=== PATIENT | female | born 1985 | race Caucasian/White ===

== ENCOUNTER 2021-11-12 15:30 | Outpatient (RCR) | payer BC, SELFPAY ==
--- NOTE | 2021-10-29 12:11 | OT.OPGNE ---
OT Outpatient General/Neuro Eval OT Outpatient General/Neuro Eval Start: 10/29/21 11:36 Freq: Status: Active Protocol: Document 10/29/21 11:36 JEFFERSON (Rec: 10/29/21 12:03 JEFFERSON [id number]) E-signed By Violetta Mauro, OTR/L, CLT OT Outpatient Evaluation Details Type Type Eval Complexity Low Insurance Information Insurance Information Insurance Information Blue Cross/Blue Shield Outpatient History/Precautions Medical/Functional History Medical History Reviewed Yes Current Condition Treatment Diagnosis B Forearm pain R > L side with intermitte ulnar pattern numbness of R RF/SF Date of Onset 09/29/21 Social History 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 Noticing she is having tenderness at cubital tunnel/medial elbow, RF/SF numbness bouts intermittently in R hand, also some at base of R C7 and T1. History of extra neck shoulder tension issues related to compensatory movements she makes in R UE ( has limited [id number] to 35 of 90 degrees R s/p trampoline injury with surgery at age 9 y/o). Hoping to get back into some form of yoga for her fitness at some point. Currently walks with a coworker over lunch 2-3x/week. Gets occasional massages and feels good at forearms, helpful. Has a supportive who works long hours as a pharmacist. Pain Assessment Pain B forearms Pain Description Tightness,Dull, Achy,With Movement,Heaviness Objective Measures Shoulder Shoulder ROM Decreased scapular rotation by 30 of 60 degrees, tight at rhomboids and latissimus dorsi . R SH ER w SH ABD to 90-- gets to 85 of 90 and HABD to 105 of 110; both pulling at posterior capsule/ infraspinatus. Elbow Elbow ROM WNL Elbow Strength Blanced MMT for B biceps and triceps. Wrist Wrist Tapping at [place] is provocative R, not on L. Has good balanced strength at RF/ SF adductors C8/T1. Increased nerve symptoms during ulnar nerve glide exercises at R medial elbow. Wrist ROM WNL all planes except supination R to 35 of 90 degrees. Wrist Strength Balanced MMT for WE, WF, RD and UD. Hand Hand Pull Through Hooker is 40# R and 39# L pos 1. Pos 2 is 46# R and 45 #L, no pain. Hill pinch is 17# B and 3 pt is 15# R and 14# L. Tissue Texture changes noted at B forearm flexor muscle bellies and also R extensor muscle bulk. Non tender at later or medial epicondyles, but is tender at ulnar groove at medial EL Home Maintenance Assessment ADL Oral Care Ability Independent Bathing Ability Independent Eating (Feeding) Ability Independent Upper Body Dressing Ability Independent Lower Body Dressing Ability Independent Grooming Ability Independent Toileting Ability Independent Ambulation Ability Independent Home Management Meal Preparation Ability Independent Cleaning Ability Independent Shopping Ability Minimum Assistance Assistance Assistance Currently Received Gets more pain with sleeping on sides, then lands onto stomach/in prone with EL flexed under chest q noc, more hand numbness in the mornings . Carrying car seat, heavy grocery loads with elbows extended, long bottle feedings in hooked position and managing child seat ad are painful. Assessment Assessment Assessment Given Radha's s diagnosis of B forearm muscle pain with intermittent R hand numbness at RF/SF, ?difficulty with edema/fibrous tissue texture, pain, of R/wrist/elbow, periscapular tightness at R shoulder and tightness at L forearm , she would benefit from skilled OT to address these areas. Occupational Therapy Treatment Plan - OP Potential Rehabilitation Potential Excellent Goals Goals In 8 weeks, Radha will demonstrate:? 1) Decreased pn to <2/10 80% of the time with sustained bottle feeding, carrying groceries, computer data officer . 2) I HEP for stretching, gradual strengthening and self mgmt strategies. 3) improved L cream cheese maker strength to 15# and pinch to 10# with L thumb pain < 1/10. 4) ??Pt to be fit with functional bracing (for CMC, wrist,) and use adaptive strategies to protect joint integrity to support less pain with ADL. Progress set Treatment Plan Treatment Plan Evaluation,Edema Control, Manual Therapy,Splinting, Ultrasound,Therapeutic Exercise,Self-Care/Home Management,Education Expected Frequency 1-2x Week Expected Duration 6-8 Weeks Certification Certification I Certify That: Therapy Services Provided, Therapy Plan Established, Therapy Plan Reviewed
== END 2022-01-12 13:53 | disposition home or self-care (01) ==
PROVIDERS: PCP Family Medicine; Visit Provider Family Medicine
DX: M79.631 Pain in right forearm (principal); Z51.89 Encounter for other specified aftercare
CPT/HCPCS: 97035; 97110; 97140; 97165; 97535; X5282

== ENCOUNTER 2022-10-03 08:40 | Outpatient (CLI) | payer OTHER, SELFPAY | END 2022-10-03 08:41 | disposition home or self-care (01) | LOC: NFLDREF 14:25 | PROVIDERS: PCP Family Medicine; Visit Provider Family Medicine | DX: M25.562 Pain in left knee (principal); G43.909 Migraine, unspecified, not intractable, without status migrainosus | CPT/HCPCS: 36415; 80053; 80061; 85025 ==

== ENCOUNTER 2022-11-09 13:00 | Outpatient (CLI) | payer OTHER, SELFPAY | END 2022-11-09 13:01 | disposition home or self-care (01) | PROVIDERS: PCP Family Medicine; Visit Provider Family Medicine | DX: E80.6 Other disorders of bilirubin metabolism (principal); K90.0 Celiac disease; K92.1 Melena | CPT/HCPCS: 80053; 82248; 82784; 82977; 86364 ==

== ENCOUNTER 2022-12-20 10:45 | Outpatient (RCR) | payer OTHER, SELFPAY | END 2022-12-20 12:09 | disposition home or self-care (01) | PROVIDERS: PCP Family Medicine; Visit Provider Family Medicine | DX: S83.92XA Sprain of unspecified site of left knee, initial encounter (principal); Z51.89 Encounter for other specified aftercare | CPT/HCPCS: 80053; 82248; 82977; 97110; 97161 ==

== ENCOUNTER 2023-01-05 09:40 | Outpatient (CLI) | payer OTHER, SELFPAY ==
--- NOTE | 2023-01-05 11:50 | W.ANESCHARGE ---
Anesthesia Charges Start Date/Time Anesthesia Start Date: 01/05/23 Anesthesia Start Time: 10:55 Stop Date/Time Anesthesia Stop Date: 01/05/23 Anesthesia Stop Time: 11:40
--- NOTE | 2023-01-05 12:44 | W.ANESCHARGE ---
Anesthesia Charges Start Date/Time Anesthesia Start Date: 01/05/23 Anesthesia Start Time: 10:55 Stop Date/Time Anesthesia Stop Date: 01/05/23 Anesthesia Stop Time: 11:40
== END 2023-01-05 09:41 | disposition home or self-care (01) ==
LOC: OP CLINIC 09:41
PROVIDERS: PCP Family Medicine; Visit Provider Surgery
DX: K21.9 Gastro-esophageal reflux disease without esophagitis (principal); K63.5 Polyp of colon; R19.7 Diarrhea, unspecified
CPT/HCPCS: 00813; 43239; 45380; 88305; J2704

== ENCOUNTER 2023-08-18 09:25 | Outpatient (CLI) | payer OTHER, SELFPAY ==
--- OUTSIDE RECORDS SUMMARY | 2023-08-18 13:08 | XMS_ITS | Clinical Summary ---
Author Organization [facility] Address [address] [address] Care Team Providers Care Wall Taper Name Role Phone Malena Ballesteros MD Primary Care Provider [phone] Source Comments You are receiving this document as you are listed as the primary care provider,follow-up provider, or the patient has been referred to you for consultation.This is in compliance with the Medicare and[facility] EHR Incentive Program,which states Providers who transition their patient to another setting of careor provider of care or refers their patient to another provider of care shouldprovide summary care record for each transition of care or referral. [facility] Allerg[facility] No known active allergies Medications Medication Sig Dispensed Refills Start Date End Date Status cetirizine (ZYRTEC) 5 MG tablet Take 5 mg by mouth daily. Active acetaminophen (TYLENOL) 325 MG tablet Take 325-650 mg by mouth every 6 hours as needed for Pain. Active vkbvctcivr-ctzxxje-njo feine (FIORINAL) 50-325-40 MG tablet Take 1 Tablet by mouth every 4 hours as needed for Pain. Active raNITIdine HCl (ACID BATCH ANALYST OR) Take 1 Tablet by mouth daily. Active Simethicone (GAS-X OR) Take 125 mg by mouth as needed. Active Nxiqttij-Gne-Bu-FA (PRE- OR) Take 1 Tablet by mouth daily. Active Active Problems Problem Noted Date Diagnosed Date Seasonal allergic rhinitis 07/04/2013 Comments Yes Immunizations Name Administration Dates Next Due Influenza IIV4 (Quadrivalent) 0.5mL (85055) 09/2018 Tdap 06/10/2016 Family History Medical History Relation Name Comments Thyroid Disorder Mother prediabetes Mother Thyroid Disorder Maternal Aunt Heart Disease Maternal Uncle 50 Thyroid Disorder Sister Cancer Negative Family History Diabetes Negative Family History Stroke Negative Family History Relation Name Status Comments Mother Maternal Aunt Maternal Uncle Sister Social History Tobacco Use Types Packs/Day Years Used Date Smoking Tobacco: Never Smokeless Tobacco: Never Alcohol Use Standard Drinks/Week Comments Not Currently 0 (1 standard drink = 0.6 oz pur e alcohol) Comments Yes Sex and Gender Information Value Date Recorded Sex Assigned at Not on file Gender Identity Not on file Sexual Orientation Not on file Last Filed Vital Signs Vital Sign Reading Time Taken Comments Blood Pressure 102/76 11/01/2018 11:11 AM CDT Pulse 88 11/01/2018 11:11 AM CDT Temperature - - Respiratory Rate - - Oxygen Saturation - - Inhaled Oxygen Concentration - - Weight 76.9 kg (169 lb 8 oz) 11/01/2018 11:11 AM CDT Height 164.5 cm (5' 4.75) 11/01/2018 11:11 AM C DT Body Mass Index 28.42 11/01/2018 11:11 AM CDT Plan of Treatment Health Maintenance Due Date Last Done Comments Hep C Screening (Preventive Services) 1986 HepB (1) 2005 Cervical Cancer Screening 07/05/2020 07/05/2017 Adult Preventive Visit 11/01/2020 9, 07/05/2017, 06/10/2016 COVID-19 Vaccine ( - season) 2022 05/16/2020, 04/25/2020 Influenza (#1) 2023 12/24/2019, 090 09/2018, 11/19/2017, Additional history exists DTaP/Tdap/Td (3 - Tdap) 10/14/2028 10/14/2018, 06/10 Zoster/Shingles (1 of 2) 2036 HIV Screening (Preventive Services) Completed 07/05/2017 Pneumococcal Aged Out 11/28/2019 No longer eligi ble based on patient's age to complete this topic HPV Vaccine Aged Out No longer eligi ble based on patient's age to complete this topic HepA Aged Out No longer eligi ble based on patient's age to complete this topic Hib Aged Out No longer eligi ble based on patient's age to complete this topic IPV (Polio) Aged Out No longer eligi ble based on patient's age to complete this topic MCV4 Aged Out No longer eligi ble based on patient's age to complete this topic Procedures Procedure Name Priority Date/Time Associated Diagnosis Comments HIV 1/2 AG/AB 4TH GEN Routine 07/05/2017 9:00 AM CDT Well adult exam ANATOMICAL PATH LIQUID BASED Routine 07/05/2017 8:42 AM CDT from Last 3 Months or Most Recently Relevant to Health Maintenance Results * HIV 1/2 Ag/Ab 4th Generation (07/05/2017 9:00 AM CDT) HIV-1 p24 Ag and HIV-1/HIV-2 Ab Nonreactive Nonreactive PN SOFT 07/05/2017 9:00 AM CDT 07/05/2017 12:13 PM CDT Narrative SAV SOFT - 07/05/2017 1:06 [place] [address] CLIA number [id number] Malena Ballesteros MD LAB_[address] [address] [place] [address] * Pap Smear (07/05/2017 8:42 AM CDT) 07/05/2017 8:42 AM CDT Narrative SAV SOFT - 07/17/2017 8:16 AM CDT FINAL GYNECOLOGICAL CYTOLOGY REPORT Pathology #: [id number] ?Date Obtained: 07/05/2017 ? Date Received: 07/06/2017 INTERPRETATION/RESULTS: Negative for Intraepithelial Lesion or Malignancy. SPECIMEN ADEQUACY: Satisfactory for Evaluation. ??Endocervical cells/transformation zone component present. Verified on 07/12/2017 ??by LATHA MARGOTH, CT(ASCP) (electronic signature) CLINICAL NOTES: ?Abnormal bleeding: No, LMP: 18, Menstrual status: None ?Apply, Current form of therapy: Hormone Therapy LIQUID BASED PAP SMEAR SPECIMEN TYPE: ?ROUTINE CERVICAL PAP TEST PLEASE NOTE: The pap smear is a screening test designed to aid in the detection of cervical cancer and its precursor lesions. It is not a diagnostic procedure and should not be used as the sole means of detecting cervical cancer. Both false-positive and false-negative reports may occur. Performed at [facility], [address] [place] [id number] Malena Ballesteros MD LAB_1 PN SOFT [address] [place] [id number] from Last 3 Months or Most Recently Relevant to Health Maintenance Care Teams Wall Taper Relationship Specialty Start Date End Date Malena Ballesteros MD [address] [place] [address] PCP - General Family Practice 06/12/17
--- OUTSIDE RECORDS SUMMARY | 2023-08-18 13:08 | XMS_ITS | Clinical Summary ---
Author Organization [facility] Address [place], [place] [address] Care Team Providers Care Metal Numerical Control Programmer Name Role Phone Pcp, No Primary Care Provider Unavailabl e Allergies No known active allergies Medications No known medications Active Problems Problem Noted Date Diagnosed Date Mole (skin) 12/05/2011 Plantar wart of right foot 12/05/2011 Other malaise and fatigue 12/05/2011 Family History Medical History Relation Name Comments Good Health Father Good Health Mother Thyroid Disease Mother Thyroid Disease Sister Relation Name Status Comments Father Mother Sister Social History Tobacco Use Types Packs/Day Years Used Date Smoking Tobacco: Never Smokeless Tobacco: Never Alcohol Use Standard Drinks/Week Comments Not Asked 0 (1 standard drink = 0.6 oz pur e alcohol) Sex and Gender Information Value Date Recorded Sex Assigned at Not on file Gender Identity Not on file Sexual Orientation Not on file Obstetrics History Last Filed Vital Signs Vital Sign Reading Time Taken Comments Blood Pressure 112/68 01/09/2012 3:03 PM REMOTE PILOT OPERATOR Pulse 68 01/09/2012 3:03 PM REMOTE PILOT OPERATOR Temperature 36.7 ??C (98 ??F) 01/09/2012 3:03 PM REMOTE PILOT OPERATOR Respiratory Rate 14 01/09/2012 3:03 PM REMOTE PILOT OPERATOR Oxygen Saturation - - Inhaled Oxygen Concentration - - Weight 65.8 kg (145 lb) 01/09/2012 3:03 PM REMOTE PILOT OPERATOR Height - - Body Mass Index - - Plan of Treatment Health Maintenance Due Date Last Done Comments Tdap 1997 Depression screening for age 12+ 1998 HIV for age 15-65 2001 BMI (ht and wt on same day) for age 18+ 2004 Hepatitis C screening for ag e 18-79 2004 Tetanus booster 2006 COVID-19 vaccine series ( season) 2022 Influenza for age 9-49 10/08/2023 Pap test for age 21-65 05/06/2024 , 05/06/2021 Pneumococcal series for age 6-64 Aged Out No longer eligible b ased on patient's age to complete this topic Procedures Procedure Name Priority Date/Time Associated Diagnosis Comments HPV THIN PREP Routine 05/06/2021 1:50 PM CDT from Last 3 Months or Most Recently Relevant to Health Maintenance Results * HPV HIGH RISK (05/06/2021 1:50 PM CDT) TYPE 16 Negative Negative 05/11/2021 5:30 PM CDT [facility] TRAL [facility] TYPE 18 Negative Negative 05/11/2021 5:30 PM CDT [facility] TRA LABORATORY OTHER HIGH RISK TYPES Negative Negative 05/11/2021 5:30 PM CDT [facility] TRA [facility]ORATORY Other (Cervical/Vagina l) 05/06/2021 1:50 PM CDT 05/10/2021 8:58 AM CDT Narrative [facility] - 05/11/2021 5:30 PM CDT HPV types 16, 18, 31, 33, 35, 39, 45, 51, 52, 56, 58, 59, 66 and 68 DNA were undetectable or below the pre-set threshold. Methodology: Andrei Emerson 4800 HPV Test [place] ASINI MICROBIOLOGY [facility] [address] [place] [address], [place] from Last 3 Months or Most Recently Relevant to Health Maintenance Care Teams Metal Numerical Control Programmer Relationship Specialty Start Date End Date Pcp, No . PCP - General 11/30/11
== END 2023-08-18 09:26 | disposition home or self-care (01) ==
LOC: NFLDREF 13:07
PROVIDERS: PCP Emergency Medicine; Referring Provider Emergency Medicine; Visit Provider Emergency Medicine
DX: E78.1 Pure hyperglyceridemia (principal); Z86.69 Personal history of other diseases of the nervous system and sense organs
CPT/HCPCS: 80061; 82728

== ENCOUNTER 2024-05-28 10:30 | Outpatient (RCR) | payer OTHER, SELFPAY ==
--- NOTE | 2023-05-08 07:46 | PT.OPDNX ---
PT [place] Outpatient Daily Note PT [facility] Outpatient Daily Note Start: 12/06/22 14:41 Freq: Status: Active Protocol: Document 05/04/23 14:12 ARR (Rec: 05/04/23 15:32 ARR [id number]) E-signed By Karen Rivas DPT PT OP Daily Progress Note Visit Information Note Type Daily Note,Recert/Progress Note Visit Number 1 Running Total Visit Number 8 Insurance Information Insurance Name Other; See Comments Insurance Information/Comments [employer] EVAL: 12/06 / re-cert on 05/03 POC 1 x 10 / x 8 Medical Diagnosis N94.2 vaginismus Treating Diagnosis N94.2 vaginismus R10.2 Pelvic and perineal pain N39.3 Stress incontinence Subjective Subjective -Getting better with finding TA -Feeling difference btw lifting vs downward pressure with coughing. -Had some leakage the other day with coughing. This is most concerning so far. -Pubic pain improving overall. % improvement 80%. Home Exercise Home Exercise Comments OTHER: -Tune in during PT exercises if bearing down or lifting -[facility] Access Code: [email or web address] URL: [email or web address] Date: 12/15/2022 Prepared by: Karen Rivas Exercises - Sidelying Thoracic and Shoulder Rotation - 1 x daily - 5-7 x weekly - 6-8 reps - Sidelying Diaphragmatic Breathing - 1 x daily - 5-7 x weekly - 6-8 reps - Transverse Abdominis Activation - 1 x daily - 5-7 x weekly - 2 sets - 6-8 reps Objective Other/Pertinent Objective 05/08/23 internal: Strength ( R / C / L): -Power (MMT): 2 -Endurance: 6 -Reps: 5 -Fast twitch: 6 -Relaxation of PFM after quick contractions: normal INTERNAL EXAMINATION INTRAVAGINAL 12/06: -Sensation: intact to touch -Observation: descended perineum -Perineum: lowered (convex) -Cough: bulge -Lifting contraction: slight lift -Bulge: bulge -Prolapse: anterior wall / posterior wall to <1/2 cm above level of hymen with bearing down, but attempts were not fully maximal due to PF pain with pressure into PF tissue Tenderness/pain to palpation/ tone: -Layer 1: ischiocavernosus / bulbospongiousus / superficial transverse perineal -Layer 2: External urtethral spincter / deep transverse perineal / compressor urethra / sphincter urethrovaginalis -Layer 3: puborectalis / pubococcygeus / iliococcygeus on RIGHT * Bilateral TTP and increased tone superficial layers 1-2 with TTP L>R with scar tissue noted in LLQ at 4-5 oclock position Strength ( R / C / L): -Power (MMT): 2 -Endurance: 6 -Reps: 4 -Fast twitch: 4 -Relaxation of PFM after quick contractions: normal Other: -Breathing examination: dec?d posterior and lateral ribcage mvmt with inhalation -Coordination: with TA activation note bearing down into PFM and bulging out into abdominal wall EXTERNAL OBJECTIVE 12/15/22: -Movement screen: MS flexion fingertips to knees with reduced TS and LS mobility. MS extension reduced into TS and LS. MS rotation 25% limitation -SLS: able to maintain 30 sec ea side with moderate drop on L side with medial collapse. R LE more instability with mild pelvic drop. -Posture: inc'd TS kyhposis at mid TS, -Hip PROM: 50 IR bilat / 90 ER bilat / ext WNL -Strength: 3- R, 3+ L -Flexibility: positive HS bilat Other Tests: -Coordination: bulging out into lower belly -Breathing: dec?d posterior and lateral ribcage mvmt with inhalation -DR: <1/2 depth at umbilicus and above/below with 1 finger width at all areas Patient Instructed in Risks/Benefits Yes Therapeutic Exercise Therapeutic Exercise Minutes (minutes) 10 Therapeutic Exercise: To Restore TE: Indicated for improvement Functional Status in strengthening and mobility. -Handouts with written instructions and photographs of exercises were issued to the patient for exercises to be included in HEP. Answered patient questions regarding POC, and mobility/stretches to perform if pain occurs -Transvaginal assessment as above Neuromuscular Re-Ed Neuromuscular Reeducation Minutes ( 25 minutes) Neuromuscular Reeducation Comments NMR: Indicated to facilitate improved muscle firing and postural awareness through the use of tactile cues. Transvaginal with consent -Breathing x 5 reps -PFC urogenital triangle 10 x 5 holds with full relaxation -Quick flicks x 10 reps -TA on exhale x 8 reps. Haaaa breathing on exhale x 8 reps HEP Revised and established with the below parameters. To complete 4-5x/wk with sets/ reps as indicated. Trial these exercises supine or seated not standing Pelvic floor contractions: - Focus on as if stopping the flow of urine - Inhale to prepare, exhale focusing on pelvic floor muscles - Exhale engaging muscles x 5 seconds - Inhale and rest x 5 ? 10 seconds - Repeat 6-8 times. Do 2-3 sets - Do 8-10 quick contractions Lower Abs - Inhale to prepare - Exhale focusing on engaging lower abdominal muscles as if blowing out candles OR shhhh o Fingers on lower belly muscles feeling tension under fingers AND lower abs flattening/lifting vs pushing out - Inhale relax and repeat - Repeat 6-8 reps. 2-3 sets Self Care Management Training Self-Care Activity Minutes (minutes) 20 Self Care Management Training -Extended time discussing coordination of a cough with PFTA contraction/lift. Discussed and demonstrated posture/positioning of stacking ribs over pelvis to reduce downward pressures onto pelvic floor. Treatment Minutes Timed Code Treatment Minutes 55 Total Treatment Time 55 Billing Units Neuromuscular Reeducation Units 2 Self-Care Activity Units 1 Therapeutic Exercise Units 1 Assessment/Impression Assessment/Impression Pt had been seen for vaginismus, pelvic/perineal pain, stress incontinence for 8 visits from 12/06/22 to 05/03 during this episode of physical therapy. Focus of therapy on spine/hip mobility, ROM, breathing, proximal strengthening and coordination of PFTA and gluts. Interventions including ther exercise, manual therapy, neuromuscular re-education self-care. Pt returns to PT after being gone since 03/06/23 . Thus due to time elapsed since last visit reassessment was indicated as pt continues to report urinary leakage with coughing and cyclic pelvic pain. PT assessment continuing to note proximal weakness of PF with MMT 2/5 this date. Proximal inhibition of TA is also noted with tendency to insurance follow up representative throughout upper abdominals and bear down into PFM. This is consistent with pt reports of urinary leakage. Pt's limited consistency/ compliance to HEP likely adversely contributing to pt's progress. Extended time this date spent on importance of consistency to HEP to note gains. HEP was revised to include exercises that can be completed in seated as well to improve consistency. Due to continued sx's pt to benefit from extension of current POC at a frequency of 1x/wk but with current schedule likely that pt will be seen every 2-3 visits. Recommend an additional 8 visits. Goals not changed from above as pt continues to making progress toward these goals. Skilled therapy continues to be indicated, maximal therapeutic benefit has not yet been reached. Plan of Care Physical Therapy Goals STG (within 5 weeks) 1) Pt will demonstrate proper coordination of motor recruitment patterns for PF then TA activation during isometric activation while maintaining diaphragmatic breathing pattern - PROGRESSING TOWARD 2) pt will report at least 80% improvement in pubic symphysis pain with walking and when on cycle for improved functional mobility - MET LTG (within 10 weeks) 1) Pt will demonstrate proper coordination of motor recruitment patterns for PF then TA activation during dynamic UE/LE movements in all postures while maintaining diaphragmatic breathing pattern - UNMET 2)Pt will demonstrate ability to complete at least 10 quick contractions of PFM with full relaxation between reps in order to reduce incontinence with increases in IAP - PROGRESSING TOWARD 3) pt will report at least 80% improvement in pubic symphysis pain with walking and when on cycle for improved functional mobility - MET 4) Pt will report absent urinary leakage with cough, sneeze - UNMET 5) Pt will report no pain with intercourse - PROGRESSING TOWARD Daily Plan of Care Comments -continue PFTA activation on exhale - add in mvmt as able. Continue to find gluts. -Next session focus on building GLUT strengthening for HEP. Review/progress ABs but focus on gluts. Recertification Information Initial Certification Date 12/06/22 Recertification Start Date 05/04/23 Reasons to Continue Skilled Therapy Pt had been seen for vaginismus, pelvic/perineal pain, stress incontinence for 8 visits from 12/06/22 to 05/03 during this episode of physical therapy. Focus of therapy on spine/hip mobility, ROM, breathing, proximal strengthening and coordination of PFTA and gluts. Interventions including ther exercise, manual therapy, neuromuscular re-education self-care. Pt returns to PT after being gone since 03/06/23 . Thus due to time elapsed since last visit reassessment was indicated as pt continues to report urinary leakage with coughing and cyclic pelvic pain. PT assessment continuing to note proximal weakness of PF with MMT 2/5 this date. Proximal inhibition of TA is also noted with tendency to insurance follow up representative throughout upper abdominals and bear down into PFM. This is consistent with pt reports of urinary leakage. Pt's limited consistency/ compliance to HEP likely adversely contributing to pt's progress. Extended time this date spent on importance of consistency to HEP to note gains. HEP was revised to include exercises that can be completed in seated as well to improve consistency. Due to continued sx's pt to benefit from extension of current POC at a frequency of 1x/wk but with current schedule likely that pt will be seen every 2-3 visits. Recommend an additional 8 visits. Goals not changed from above as pt continues to making progress toward these goals. Skilled therapy continues to be indicated, maximal therapeutic benefit has not yet been reached.
--- NOTE | 2024-03-07 12:27 | PT.OPEX ---
PT [facility] Eval PT [facility] Outpatient Eval Start: 12/06/22 14:41 Freq: Status: Active Protocol: Document 12/06/22 14:42 ARR (Rec: 12/06/22 15:42 ARR [id number]) E-signed By Karen Rivas DPT Physical Therapy Outpatient Evaluation Insurance Information Insurance Name Other; See Comments Insurance Information/Comments [employer] Medical Diagnosis N94.2 vaginismus Treating Diagnosis N94.2 vaginismus R10.2 Pelvic and perineal pain N39.3 Stress incontinence Subjective Subjective -Subjective: Gave 18 months ago to daughter 2021 (2nd child). Since this time will get pain at mid PS area will get ache, painful to walk. Similar to during ? really bad 2nd . Also being seen for knee pain as well. -Urinary: Occasional leakage with sneezing hard. Small leakage. No straining. No urgency. Daytime urination ~8x . Nocturia 0-1x. -Hydration: 25-50 oz /day. -Bowel: 3x/day. Occasional straining. Deuel chart variable from 3-7 pending the day. Complete emptying. -Sexual: Slight pain with insertion typically but goes away. -PMHx: chronic neck pain, celiac disease, asthma, TS pain, constipation, ACL repair 2007 R and ACL sprain on L, lichen sclerosis. -: G/P 3/2 4 y/o and 18 months. Vaginal deliveries with tearing needing stitches . -Current exercise: knee PT, lots of walking. -Orthopedic issues: L knee. Off/on back and neck pain. -Goals: resolve PS pain. No more leakage with sneezing. Get rid of pain with intercourse Objective Other/Pertinent Objective INTERNAL EXAMINATION INTRAVAGINAL 12/06: -Sensation: intact to touch -Observation: descended perineum -Perineum: lowered (convex) -Cough: bulge -Lifting contraction: slight lift -Bulge: bulge -Prolapse: anterior wall / posterior wall to <1/2 cm above level of hymen with bearing down, but attempts were not fully maximal due to PF pain with pressure into PF tissue Tenderness/pain to palpation/ tone: -Layer 1: ischiocavernosus / bulbospongiousus / superficial transverse perineal -Layer 2: External urtethral spincter / deep transverse perineal / compressor urethra / sphincter urethrovaginalis -Layer 3: puborectalis / pubococcygeus / iliococcygeus on RIGHT * Bilateral TTP and increased tone superficial layers 1-2 with TTP L>R with scar tissue noted in LLQ at 4-5 oclock position Strength ( R / C / L): -Power (MMT): 2 -Endurance: 6 -Reps: 4 -Fast twitch: 4 -Relaxation of PFM after quick contractions: normal Other: -Breathing examination: dec?d posterior and lateral ribcage mvmt with inhalation -Coordination: with TA activation note bearing down into PFM and bulging out into abdominal wall Assessment Assessment/Impression Pt is a 37 y/o female who presents with concerns of urinary leakage with sneeze/ cough, pelvic pain with walking and on cycle, pain with intercourse. Leakage signs and symptoms likely indicating / consistent with impaired pelvic floor and lower abdominal motor control as pt tends to bear down with attempts at abdominal bracing. Pain with intercourse likely secondary to TTP at first 2 layers of PFM in addition to R sided lower quadrant at 4-5 oclock along scar tissue. Pelvic pain likely referred from PS joint secondary to reduced proximal stability of TA, gluts and pelvic floor. Patient is a good candidate for skilled therapy to target deficits described above. Skilled PT intervention is necessary for use of therapeutic exercise manual therapy, neuromuscular re- education, gait training, and therapeutic activity. Functional impairments include difficulty with: pain with walking, urinary leakage with increases in IAP. See appropriate sections of PT eval for complete list of goals and POC. D/C plan and criteria is for pt to achieve the goals as listed below or until max rehab potential is met. Pt was agreeable with plan of care and goals established. Evaluation and internal vaginal PFM assessment/ treatment with patient consent was requested and obtained. Plan of Care Rehabilitation Potential Good Physical Therapy Goals STG (within 5 weeks) 1) Pt will demonstrate proper coordination of motor recruitment patterns for PF then TA activation during isometric activation while maintaining diaphragmatic breathing pattern 2) pt will report at least 80% improvement in pubic symphysis pain with walking and when on cycle for improved functional mobility LTG (within 10 weeks) 1) Pt will demonstrate proper coordination of motor recruitment patterns for PF then TA activation during dynamic UE/LE movements in all postures while maintaining diaphragmatic breathing pattern 2)Pt will demonstrate ability to complete at least 10 quick contractions of PFM with full relaxation between reps in order to reduce incontinence with increases in IAP 3) pt will report at least 80% improvement in pubic symphysis pain with walking and when on cycle for improved functional mobility 4) Pt will report absent urinary leakage with cough, sneeze 5) Pt will report no pain with intercourse Treatment Plan/Direct Interventions Electrical Stimulation,Joint Mobilization,Manual Therapy, Neuromuscular Re-ed,Self-Care/ Home Management,Therapeutic Activities,Therapeutic Exercises Frequency/Duration 1x/wk x 10 wks Evaluation Billing Untimed Code Treatment Minutes 30 Complexity Moderate Certification Information Physician Comment/Change : Physician NPI Number #
--- NOTE | 2024-04-30 13:04 | PT.OPDNX ---
PT [facility] Out[facility] Daily Note PT [facility] Outpatient Daily Note Start: 12/06/22 14:41 Freq: Status: Active Protocol: Document 04/30/24 09:31 ARR (Rec: 04/30/24 13:01 ARR [id number]) E-signed By Karen Rivas DPT PT [facility] Daily Progress Note Visit Information Note Type Daily Note Visit Number 4 Running Total Visit Number 20 Insurance Information Insurance Name Other; See Comments Insurance Information/Comments [employer] EVAL: 12/06 / re-cert on 05/03 POC 1 x 10 / 1 x 8 Medical Diagnosis N94.2 vaginismus Treating Diagnosis N94.2 vaginismus R10.2 Pelvic and perineal pain N39.3 Stress incontinence Subjective Subjective -No pain first day of cycle! Then did some wheelbarrow exercise shoveling - seemed to resolve it. Home Exercise Home Exercise Comments SEATED EXERCISES Pelvic floor contractions: - Focus on as if stopping the flow of urine - Inhale to prepare, exhale focusing on pelvic floor muscles - Exhale engaging muscles x 8- 10 seconds - Inhale and rest x 8? 10 seconds - Repeat 6-8 times. Do 2-3 sets - Do 8-10 quick contractions EXERCISE A - Inhale to prepare - Exhale focusing on engaging lower abdominal muscles as if blowing out candles ? Focus on exhaling bottom up ? starting from pelvic floor to lower abdominals ? Fingers on lower belly muscles feeling tension under fingers AND lower abs flattening/lifting vs pushing out - Inhale relax and repeat - Repeat 10 reps. 2-3 sets EXERCISE B - Inhale to prepare - Exhale focusing on engaging lower abdominal muscles as if blowing out candles ? Focus on exhaling bottom up ? starting from pelvic floor to lower abdominals ? Fingers on lower belly muscles feeling tension under fingers AND lower abs flattening/lifting vs pushing out - YOU picker and packer one leg ( marching) ? or doing kickstand , pressing thighs together, tipping a knee out - Inhale relax and repeat - Repeat 6-8 reps. 2-3 sets EXERCISE C: - 1) When picking up kids, standing up from a chair, lifting groceries - 2). Focus on inhaling to prepare then exhale during the hard part. - 3) Incorporate this strategy into daily function Access Code: [email or web address] URL: [email or web address] Date: 02/15/2024 Prepared by: Karen [facility] Program Notes -Inguinal nerve stretch (See handout)? Exercises - Cat-Camel - 1 x daily - 4-7 x weekly - 4-5 reps - Half Kneeling Hip Flexor Stretch with Sidebend - 1 x daily - 4-7 x weekly - 6-8 reps - mobility exercise type Objective Other/Pertinent Objective 04/30/24: POPQ (performed pt hooklying with cue to ?bear down and hold breath as though having a BM? or ?bear down.? Bear down sustained 6-8 sec x 3 for first measure then 1-3 reps for subsequent measures. -GH: 3.0 -PB: 5 -LH (GH+PB): 8 -TVL: high NT -C: 8 -D: NT -Aa: -0.5 -Ba: -1.5 -Width btw WA muscle bellies 3 -Palpation: Reduced palpable contraction of WA muscle belly on L posterior pubis. Muscle contraction ? reduced contraction noted on L WA. Elevated PFM tone on L IC and WA Strength ( R / C / L): -Power (MMT): 3 -Endurance: 8 -Reps: 7 -Fast twitch: nt -Relaxation of PFM after quick contractions: normal Aa -0.5. Ba -2.0 Ap -0.5 Bp -0.5 Rugae present with more descent on L side vs R INTERNAL EXAMINATION INTRAVAGINAL 12/06: -Sensation: intact to touch -Observation: descended perineum -Perineum: lowered (convex) -Cough: bulge -Lifting contraction: slight lift -Bulge: bulge -Prolapse: anterior wall / posterior wall to <1/2 cm above level of hymen with bearing down, but attempts were not fully maximal due to PF pain with pressure into PF tissue Tenderness/pain to palpation/ tone: -Layer 1: ischiocavernosus / bulbospongiousus / superficial transverse perineal -Layer 2: External urtethral spincter / deep transverse perineal / compressor urethra / sphincter urethrovaginalis -Layer 3: puborectalis / pubococcygeus / iliococcygeus on RIGHT * Bilateral TTP and increased tone superficial layers 1-2 with TTP L>R with scar tissue noted in LLQ at 4-5 oclock position Strength ( R / C / L): -Power (MMT): 2 -Endurance: 6 -Reps: 4 -Fast twitch: 4 -Relaxation of PFM after quick contractions: normal Other: -Breathing examination: dec?d posterior and lateral ribcage mvmt with inhalation -Coordination: with TA activation note bearing down into PFM and bulging out into abdominal wall EXTERNAL OBJECTIVE 12/15/22: -Movement screen: MS flexion fingertips to knees with reduced TS and LS mobility. MS extension reduced into TS and LS. MS rotation 25% limitation -SLS: able to maintain 30 sec ea side with moderate drop on L side with medial collapse. R LE more instability with mild pelvic drop. -Posture: inc'd TS kyhposis at mid TS, -Hip PROM: 50 IR bilat / 90 ER bilat / ext WNL -Strength: 3- R, 3+ L -Flexibility: positive HS bilat Other Tests: -Coordination: bulging out into lower belly -Breathing: dec?d posterior and lateral ribcage mvmt with inhalation -DR: <1/2 depth at umbilicus and above/below with 1 finger width at all areas Patient Instructed in Risks/Benefits Yes Therapeutic Exercise Therapeutic Exercise Minutes (minutes) 20 Therapeutic Exercise: To Restore TE: Indicated for improvement Functional Status in strengthening and mobility. -Handouts with written instructions and photographs of exercises were issued to the patient for exercises to be included in HEP. Answered patient questions regarding POC, and mobility/stretches to perform if pain occurs -External assessment as above Self Care Management Training Self-Care Activity Minutes (minutes) 40 Self Care Management Training Self Care/Home Management: -pt educated in anatomy and function of bladder & pelvic floor & etiology of symptoms. -Education regarding importance of deep diaphragmatic breathing for lengthening of PFM and anatomical relationship of diaphragm and PF -Pt educated regarding importance of proper P mgmt and impact on abdominal wall/ PF with poor techniques -Education regarding anatomy of pelvic floor, pelvic organs , and impact of tissue descent -Discussed options for support including pessaries and compression garments -Discussed options for insertion of tampons -Discussed further impact of pressure mgmt on onset of heaviness sx's and PGP Treatment Minutes Timed Code Treatment Minutes 60 Total Treatment Time 60 Billing Units Self-Care Activity Units 3 Therapeutic Exercise Units 1 Assessment/Impression Assessment/Impression 75% of session spent on pt education regarding anatomy of body, implications of tissue descent and options for support. Reassessment of PF this date noting minimal change in tissue descent upon bearing down. Pt to continue with HEP and report next session Plan of Care Physical Therapy Goals STG (within 5 weeks) 1) Pt will demonstrate proper coordination of motor recruitment patterns for PF then TA activation during isometric activation while maintaining diaphragmatic breathing pattern - MET 2) pt will report at least 80% improvement in pubic symphysis pain with walking and when on cycle for improved functional mobility - MET LTG (within 10 weeks) 1) Pt will demonstrate proper coordination of motor recruitment patterns for PF then TA activation during dynamic UE/LE movements in all postures while maintaining diaphragmatic breathing pattern - UNMET 2)Pt will demonstrate ability to complete at least 10 quick contractions of PFM with full relaxation between reps in order to reduce incontinence with increases in IAP - PROGRESSING TOWARD 3) pt will report at least 80% improvement in pubic symphysis pain with walking and when on cycle for improved functional mobility - MET 4) Pt will report absent urinary leakage with cough, sneeze - MET 5) Pt will report no pain with intercourse - MET 6) Pt will report resolved pain on at least 2 consecutive monthly cycles - New goal 7) Pt will report ability to stand and walk without onset of pain - new goal 03/07 Daily Plan of Care Comments -Wean from MT techniques, increase TA coordination -Continue to progress core and glut coordination exercises -Answer any questions on tissue changes Recertification Information Recertification Start Date 03/08/24 Provider Signature Shows Agreement With POC & Medical Necessity Physician Comment/Change Comment or Changes Physician NPI Number #
== END 2024-09-25 23:59 | disposition home or self-care (01) ==
PROVIDERS: PCP Family Medicine; Visit Provider Family Medicine
DX: N94.2 Vaginismus (principal); R10.2 Pelvic and perineal pain; N39.3 Stress incontinence (female) (male); Z51.89 Encounter for other specified aftercare
CPT/HCPCS: 97110; 97112; 97140; 97162; 97535

== ENCOUNTER 2024-09-05 11:16 | Outpatient (CLI) | payer OTHER, SELFPAY ==
[2024-09-07 08:51] LABS: HPV Source Endocervical
[2024-09-11 10:34] LABS: Pap Test Digital Imaging Done
== END 2024-09-05 11:17 | disposition home or self-care (01) ==
PROVIDERS: Visit Provider Nurse Practitioner Family
DX: Z00.00 Encounter for general adult medical examination without abnormal findings (principal); Z13.6 Encounter for screening for cardiovascular disorders; Z12.4 Encounter for screening for malignant neoplasm of cervix; Z11.51 Encounter for screening for human papillomavirus (HPV)
CPT/HCPCS: 80061; 87624; 87625; 88141; 88142; 88175